=== PATIENT | female | born 1975 ===

== ENCOUNTER 2023-05-18 05:56 | Day surgery (SDC) | payer OTHER ==
[~2023-05-18 05:56] MED LIST: COLESTID1 GM PO
[2023-05-18] MEDS ORDERED: METRONIDAZOLE/SODIUM CHLORIDE 500 MG/100 ML PIGGYBACK IV ONE ×2 (08:00→12:15)
[2023-05-18] MEDS ORDERED: HEMOSTATIC MATRIX 1 KIT KIT TOP ONE ×2 (08:01→12:15)
[2023-05-18] MEDS ORDERED: POVIDONE-IODINE 118 ML BOTT TOP ONE ×2 (08:01→12:15)
[2023-05-18] MEDS ORDERED: DIBUCAINE 15 GM OINT..GM. TUBE ONE (08:01)
[2023-05-18] MEDS ORDERED: DIBUCAINE 30 GM TUBE RECTAL ONE (12:15)
[2023-05-18] MEDS ORDERED: CEFTRIAXONE SODIUM 2,000 MG VIAL IV ONE (12:15)
[2023-05-18] MEDS ORDERED: TAMSULOSIN HCL 0.4 MG CAP PO ONE (12:45)
[2023-05-18] MEDS ORDERED: OXYC1TAB9 PO (12:58)
== END 2023-05-18 17:30 | disposition home or self-care (01) ==
LOC: CIR.AMB 05:56
PROVIDERS: ATTEND Surgery
DX: K64.2 Third degree hemorrhoids (principal); K64.4 Residual hemorrhoidal skin tags; K64.8 Other hemorrhoids; I10 Essential (primary) hypertension; Z20.822 Contact with and (suspected) exposure to COVID-19; Z88.8 Allergy status to other drugs, medicaments and biological substances